=== PATIENT | female | born 1980 | race Caucasian/White ===

== ENCOUNTER 2021-09-24 20:17 | Emergency (ER) | payer OTHER, MEDICAID, SELFPAY ==
[2021-09-24 20:31] VITALS: BP 136/84; PULSE 71; RESP 16; TEMP 36.5; O2SAT 97; BMI 36.6
--- NOTE | 2021-09-24 22:36 | ED_ITS ---
HPI - Dental/Oral General Chief complaint: Dental/Oral Stated complaint: wants antibiotics for dental abscess Time Seen by Provider: 09/24/21 22:23 Mode of arrival: Family Vehicle History of Present Illness HPI Narrative: 40-year-old female smoker with history of extensive dental infections presents with a chief complaint of multiple areas of dental pain with swelling and some drainage of purulent fluid consistent with abscess. She is been having pain off and on for quite some time but is been much more intense and persistent for the past 3-4 days. She denies any facial swelling, fever, chills nor nausea or vomiting. She went to her dentist today who has her scheduled for more in-depth appointment a week or so but at the time she apparently did not have evidence of an abscess was not given antibiotics. Related Data Previous Rx's Medication Instructions Recorded ketorolac 10 mg tablet 10 mg PO Q6H PRN pain #14 tabs 09/24/21 penicillin V potassium 250 mg 500 mg PO Q6H 7 days #56 tabs 09/24/21 tablet Allergies Allergy/AdvReac Type Severity Reaction Status Date / Time No Known Drug Allergies Allergy Verified 09/24/21 20:35 Review of Systems Review of Systems Narrative: GENERAL: Denies chills, fatigue, malaise, fever, sweats. HEENT: See HPI RESPIRATORY: Denies dyspnea, cough, wheezing, hemoptysis, sputum. CARDIOVASCULAR: Denies chest pain, palpitations, orthopnea, edema, GASTROINTESTINAL: Denies nausea, vomiting, abdominal pain, diarrhea, constipation, melena. : Denies dysuria, frequency, incontinence, hematuria, urinary retention. MUSCULOSKELETAL: denies weakness, joint pain, or bony pain SKIN: Denies rash, skin lesions, or other NEUROLOGIC: Denies weakness, headache, numbness, change in speech, confusion, seizures, incoordination. PSYCHIATRIC: No concerning psychosocial issues. 12 point review of systems is negative except for those stated above Patient History Social History Smoking Status: Current every day smoker Smoking Status: Current every day smoker alcohol intake frequency: a few times a month Substance Use Type: marijuana Exam Narrative Exam Narrative: GENERAL: [40] year old patient appears stated age. Well-developed patient, in mild distress. HEAD: Atraumatic. Normocephalic. EYES: Pupils equal round and reactive. Extraocular motions intact. No scleral icterus. No injection or drainage. ENT: Widespread poor dentition with multiple caries. Primary locations of pain are adjacent to eroded area of tooth above right upper premolar and some inflammation with evidence of previously ruptured abscess adjacent to left lower 1st premolar. No facial swelling noted Nose without bleeding, purulent drainage. Throat without erythema, tonsillar hypertrophy or exudate. Airway patent. NECK: Trachea midline. Non tender CARDIOVASCULAR: Regular rate and rhythm without murmurs, gallops, or rubs. RESPIRATORY: Clear to auscultation. Breath sounds equal bilaterally. No wheezes, rales, or rhonchi. GASTROINTESTINAL: Abdomen soft, non-tender, nondistended. EXTREMITIES: No edema or joint tenderness. BACK: Nontender without deformity or crepitance. No flank tenderness. NEURO: AOx3. SKIN: No rash or erythema of visible areas Initial Vital Signs Initial Vital Signs: Vital Signs Temperature 97.7 F 09/24/21 20:31 Pulse Rate 71 09/24/21 20:31 Respiratory Rate 16 09/24/21 20:31 Blood Pressure 136/84 09/24/21 20:31 Pulse Oximetry 97 09/24/21 20:31 Oxygen Delivery Method 09/24/21 20:31 Course Orders Ordered: Discontinued Medications Ketorolac Tromethamine (Ketorolac 30 Mg/Ml Vial) 30 mg IM NOW ONE Stop: 09/24/21 23:09 Penicillin V Potassium (Penicillin 250 Mg/5 Ml Prepack) 1 bottle MISC SEEINSTR ONE Stop: 09/24/21 23:08 Penicillin V Potassium (Penicillin 250 Mg Tab Prepack) 1 bottle MISC SEEINSTR ONE Stop: 09/24/21 23:12 Vital Signs Vital signs: Vital Signs - 8 hr 09/24/21 20:31 Temperature 97.7 F Pulse Rate 71 Respiratory Rate 16 Blood Pressure 136/84 Pulse Oximetry 97 Oxygen Delivery Method Room Air Discharge Plan Departure Patient Disposition: Home Clinical Impression: Toothache, Dental caries Instructions: Tooth Abscess, DI for Dental Pain Activity Restrictions/Additional Instructions: *You have been diagnosed with [dental pain with widespread poor dentition and small abscess] *What to do: *Please continue to take your regular medications as directed. [x ] New medication prescriptions sent to your pharmacy: [[facility] in [place] ] [ ] New medication written as a paper prescription [ ] No new medications given *Please follow up with your primary care provider in 2-3 days, call for an appointment. Let them know you were seen in the Emergency Department and that we ask that you be seen in follow up. We will electronically transmit a record of today's note if your PCP is in our system *If you do not have a primary care provider please contact the [facility] Resource line at [phone]. They will ask some questions about your medical history and help get you set up with a doctor in the community. *Return to Emergency Department if you should have any new, worsening or concerning symptoms, such as [fever greater than 101 F, shaking chills, worsening pain, persistent vomiting or other bothersome symptoms] Prescriptions: New ketorolac 10 mg tablet 10 mg PO Q6H PRN (Reason: pain) Qty: 14 0RF penicillin V potassium 250 mg tablet 500 mg PO Q6H 7 Days Qty: 56 0RF
[2021-09-24] MEDS: PENICILLIN 250 MG TAB PREPACK 1 BOTTLE MISC (23:17)
[2021-09-24] MEDS: KETOROLAC 30 MG/ML VIAL IM (23:17)
== END 2021-09-24 23:27 | disposition home or self-care (01) ==
PROVIDERS: Emergency Provider Emergency Medicine
DX: K02.9 Dental caries, unspecified (principal)
CPT/HCPCS: 96372; 99283; J1885

== ENCOUNTER 2022-02-17 03:48 | Emergency (ER) | payer OTHER, MEDICAID, SELFPAY ==
[2022-02-17 04:02] VITALS: BP 124/86; PULSE 78; RESP 20; TEMP 36.4; O2SAT 97; BMI 38.0
--- NOTE | 2022-02-17 04:27 | DI.CT.S_ITS ---
PROCEDURE: CT KIDNEY URETER BLADDER (KUB) INDICATIONS: Right side flank pain eval for stone TECHNIQUE: Axial sections were acquired from the lung bases to the pubic symphysis. Coronal and sagittal reformats were performed. For radiation dose reduction, the following was used: automated exposure control, adjustment of mA and/or kV according to patient size. COMPARISON: None. FINDINGS: Image quality: Excellent. Lung bases: Unremarkable. Heart: No significant findings. URINARY: Right Kidney: There are multiple small stones measuring 1-3 mm in right kidney. Mild right hydronephrosis is present. Right Ureter: Mild hydroureter. No ureteral stones. Left Kidney: No stones or hydronephrosis. Left Ureter: No hydroureter. Bladder: Normal wall thickness. There is a 3 mm stone within the ureter near the right UVJ. ABDOMEN: Liver: Prominent in size. Mild hepatic steatosis. Gallbladder: Unremarkable. Biliary ducts: Unremarkable. Pancreas: Unremarkable. Spleen: Unremarkable. Adrenal Glands: There is a 2.7 x 3.3 cm right adrenal nodule demonstrating CT density compatible with a benign adenoma. Left adrenal is normal. Stomach and Bowel: Stomach, small bowel loops, and colon are unremarkable. Normal appendix. Peritoneum: No abnormal intraperitoneal fluid. No free air. Ventral Wall: Probable prior ventral hernia repair. Mild fatty infiltration of the rectus abdominus muscles. Abdominal Nodes: No enlarged retroperitoneal or mesenteric lymph nodes. Vessels: Aorta and inferior vena cava are normal in size. PELVIS: Pelvic Organs: Unremarkable. Pelvic Nodes: Unremarkable. Miscellaneous: No inguinal hernias are seen. Bones: Unremarkable. IMPRESSION: 1. There is a 3 mm stone within the bladder near the right UVJ, compatible with recently passed a stone. There is mild right hydronephrosis and hydroureter. 2. Multiple small-3 mm nonobstructive right renal calculi. 3. A 2.7 x 3.3 cm right adrenal adenoma. 4. Hepatic steatosis. 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 Dictated by: Enoch Null M.D. on 02/17/2022 at 8:57 Approved by: Enoch Null M.D. on 02/17/2022 at 10:17
--- NOTE | 2022-02-17 04:28 | ED_ITS ---
HPI - General Adult General Chief complaint: Urogenital-Female Stated complaint: abd pain, back pain Time Seen by Provider: 02/17/22 04:01 Source: patient Mode of arrival: Ambulatory Limitations: no limitations History of Present Illness HPI narrative: 41-year-old female who is here for evaluation of right-sided lower back pain, flank pain that radiates around to the front of her abdomen. She has had lower back pain for about the past week however the rest of her symptoms started within the past couple hours. She states she is having some problems urinating. Having frequency and hesitancy. She is never had a kidney stone in the past. She has had urinary tract infections in the past she thought that maybe this was a urinary tract infection or kidney infection. No fevers. She was in quite a bit of discomfort in route here to the emergency department that has improved somewhat. Has not tried anything for the symptoms prior to arrival Related Data Previous Rx's Medication Instructions Recorded ketorolac 10 mg tablet 10 mg PO Q6H PRN pain #14 tabs 09/24/21 Allergies Allergy/AdvReac Type Severity Reaction Status Date / Time No Known Drug Allergies Allergy Verified 09/24/21 20:35 Review of Systems Constitutional Constitutional: Reports system reviewed and no additional complaints, except as documented Gastrointestinal Gastrointestinal: Reports system reviewed and no additional complaints, except as documented Genitourinary Genitourinary: Reports system reviewed and no additional complaints, except as documented Musculoskeletal Musculoskeletal: Reports system reviewed and no additional complaints, except as documented Integumentary/Breasts Skin/Breast: Reports system reviewed and no additional complaints, except as documented Patient History Social History Smoking Status: Current every day smoker Smoking Status: Current every day smoker tobacco type: cigarettes alcohol intake frequency: a few times a month Substance Use Type: marijuana Exam Initial Vital Signs Initial Vital Signs: Vital Signs Temperature 97.6 F 02/17/22 04:02 Pulse Rate 78 02/17/22 04:02 Respiratory Rate 20 02/17/22 04:02 Blood Pressure 124/86 02/17/22 04:02 Pulse Oximetry 97 02/17/22 04:02 Oxygen Delivery Method 02/17/22 04:02 Const General: cooperative and comfortable HENMT Head: normal to inspection and normocephalic GI Inspection: normal to inspection Back/Spine/Pelvis Back: No CVA tenderness Skin General: no rashes or lesions noted Neuro General: patient alert, patient awake and moves all extremities Extrem General: capillary refill normal Course Orders Ordered: ED Orders 02/17/22 04:27 CT kidney ureter bladder (KUB) Stat Vital Signs Vital signs: Vital Signs - 8 hr 02/17/22 04:02 Temperature 97.6 F Pulse Rate 78 Respiratory Rate 20 Blood Pressure 124/86 Pulse Oximetry 97 Oxygen Delivery Method Room Air Medical Decision Making Lab Data Labs: Point of Care Testing Test Results Negative Urine Dip Bedside Urine Glucose Negative Bedside Urine Bilirubin - Negative Bedside Urine Ketone - Negative Urine Specific [place] 1.025 Bedside Urine Occult Blood ++ Bedside Urine pH 6.0 Bedside Urine Protein - Negative Bedside Urine Urobilinogen - Negative Bedside Urine Nitrite - Negative Bedside Urine Leukocytes - Negative Esterase Point of care testing: Point of Care Testing Test Results Negative Urine Dip Bedside Urine Glucose Negative Bedside Urine Bilirubin - Negative Bedside Urine Ketone - Negative Urine Specific [place] 1.025 Bedside Urine Occult Blood ++ Bedside Urine pH 6.0 Bedside Urine Protein - Negative Bedside Urine Urobilinogen - Negative Bedside Urine Nitrite - Negative Bedside Urine Leukocytes - Negative Esterase Imaging Data CT scan - abdomen/pelvis: Radiologist's Impression: Recently passed right renal calculus with mild residual hydroureteronephrosis Nonobstructing right nephrolithiasis 3 cm right adrenal cystic mass MDM Narrative Medical decision making narrative: Urinalysis today does show blood. No signs of infection. CT scan shows findings consistent with recently passed stone. She also has an incidental finding of a 3 cm right adrenal cystic mass. Patient was informed of this. She was able to pull up a prior CT from October of 2020 which showed the same size mass. She will talk with her primary doctor about this. We discussed return precautions and follow-up instructions. She expressed understanding and agreement. Discharge Plan Departure Patient Disposition: Home Clinical Impression: Renal colic on right side Instructions: DI for Kidney Stones Activity Restrictions/Additional Instructions: Recommend that she stay hydrated. Contact your primary doctor for follow-up. Return to the emergency department for any new or worsening symptoms. Prescriptions: No Action ketorolac 10 mg tablet 10 mg PO Q6H PRN (Reason: pain) Qty: 14 0RF Stand Alone Forms: Work Release Note
[2022-02-17 06:11] VITALS: BP 122/79; PULSE 76; RESP 20; O2SAT 98
== END 2022-02-17 06:12 | disposition home or self-care (01) ==
PROVIDERS: Emergency Provider Emergency Medicine
DX: N23 Unspecified renal colic (principal)
CPT/HCPCS: 74176; 81003; 81025; 99282; 99283

== ENCOUNTER 2022-07-23 23:33 | Emergency (ER) | payer OTHER, MEDICAID, SELFPAY ==
[2022-07-23 23:57] VITALS: BP 158/92; PULSE 72; RESP 16; TEMP 36.1; O2SAT 98
--- NOTE | 2022-07-24 00:08 | ED.GENADULT ---
HPI - General Adult General Chief complaint: Dental/Oral Stated complaint: INFECTED TOOTH #14 & #15 Time Seen by Provider: 07/23/22 23:49 Source: patient Mode of arrival: Ambulatory History of Present Illness HPI narrative: Patient is a 41-year-old female who is here for evaluation of a left upper tooth pain. She states that she as she is seen her dentist in the past. Has also seen an oral surgeon. The appointment with the oral surgeon was within the past 2 weeks. She is not currently on antibiotics. She is had increasing discomfort over the past couple days. No fevers. No problems breathing. Has been doing Tylenol and ibuprofen. Related Data Previous Rx's Medication Instructions Recorded ketorolac 10 mg tablet 10 mg PO Q6H PRN pain #14 tabs 09/24/21 penicillin V potassium 500 mg 500 mg PO QID 7 days #28 tabs 07/24/22 tablet Allergies Allergy/AdvReac Type Severity Reaction Status Date / Time No Known Drug Allergies Allergy Verified 09/24/21 20:35 Review of Systems ENT Ears, Nose, Mouth, and Throat: Reports system reviewed and no additional complaints, except as documented Respiratory Respiratory: Reports system reviewed and no additional complaints, except as documented Integumentary/Breasts Skin/Breast: Reports system reviewed and no additional complaints, except as documented Hematologic/Lymphatic On Anticoagulants: No Patient History Social History Smoking Status: Current every day smoker Smoking Status: Current every day smoker tobacco type: cigarettes alcohol intake frequency: a few times a month Substance Use Type: marijuana Exam Initial Vital Signs Initial Vital Signs: Vital Signs Temperature 96.9 F L 07/23/22 23:57 Pulse Rate 72 07/23/22 23:57 Respiratory Rate 16 07/23/22 23:57 Blood Pressure 158/92 H 07/23/22 23:57 Pulse Oximetry 98 07/23/22 23:57 Oxygen Delivery Method Room Air 07/23/22 23:57 Const General: cooperative, comfortable and No ill appearing HENMT Face and sinus: normal facial exam Mouth: moist mucous membranes Teeth and gingiva: gingiva normal and fair dentition Skin General: no rashes or lesions noted Neuro General: patient alert, patient awake and moves all extremities Course Orders Ordered: Discontinued Medications Ketorolac Tromethamine (Ketorolac 30 Mg/Ml Vial) 30 mg IM NOW ONE Stop: 07/24/22 00:09 Penicillin V Potassium (Penicillin Vk 250 Mg Tablet) 500 mg PO NOW ONE Stop: 07/24/22 00:09 Vital Signs Vital signs: Vital Signs - 8 hr 07/23/22 23:57 Temperature 96.9 F L Pulse Rate 72 Respiratory Rate 16 Blood Pressure 158/92 H Pulse Oximetry 98 Oxygen Delivery Method Room Air Medical Decision Making MDM Narrative Medical decision making narrative: Patient does have a fracture and left upper molar. There is no definitive abscess seen on the exam that would be amenable to intervention here in the emergency department. We will treat her with antibiotics. Given 1st dose here in the ER and sent home with a prescription. She does have a follow-up with her dentist scheduled within the next 2 weeks. She understands that she is going to need to follow-up with her dentist an oral surgeon for definitive treatment. Discharge Plan Departure Patient Disposition: Home Clinical Impression: Toothache Instructions: Tooth Abscess Activity Restrictions/Additional Instructions: It is important that you take the antibiotics as directed. You will also going to need to follow-up with your dentist and potentially a oral surgeon for definitive treatment. You can continue to take Tylenol and ibuprofen for discomfort. Prescriptions: New penicillin V potassium 500 mg tablet 500 mg PO QID 7 Days Qty: 28 0RF No Action ketorolac 10 mg tablet 10 mg PO Q6H PRN (Reason: pain) Qty: 14 0RF Stand Alone Forms: Patient Portal/API
[2022-07-24] MEDS: PENICILLIN VK 250 MG TABLET 500 MG PO (00:24)
[2022-07-24] MEDS: KETOROLAC 30 MG/ML VIAL IM (00:24)
== END 2022-07-24 00:27 | disposition home or self-care (01) ==
PROVIDERS: Emergency Provider Emergency Medicine
DX: K08.89 Other specified disorders of teeth and supporting structures (principal)
CPT/HCPCS: 96372; 99283; J1885